=== PATIENT | male | born 1995 | race Hispanic/Latino ===

== ENCOUNTER 2023-04-22 08:36 | Emergency (ER) | payer OTHER ==
[~2023-04-22] VITALS: Ht 175.3 cm; Wt 116.6 kg
[2023-04-22 10:05] VITALS: BP 139/77; PULSE 78; RESP 18; O2SAT 99
== END 2023-04-22 10:07 | disposition home or self-care (01) ==
LOC: EDH 08:36
DX: Z48.815 Encounter for surgical aftercare following surgery on the digestive system (principal); Z48.02 Encounter for removal of sutures
CPT/HCPCS: 99282